=== PATIENT | female | born 1980 | race Caucasian/White ===

== ENCOUNTER 2017-08-10 09:52 | Day surgery (SDC) | payer MEDICAID ==
[~2017-08-10] VITALS: Ht 170.2 cm; Wt 73.6 kg
[~2017-08-10 09:52] MED LIST: ASPI1TAB93 PO; ATOR40TA16 PO; AVIATAB PO; ETON1IMP I-DERMAL; FROV1TAB PO; HYDR-3516 PO; HYDR-3583 PO; IBUP200C PO; METH4PAK PO; PHEN-556 PO; PROB1CAP12 PO; PROP40TA3 PO; VALA1TAB PO; VOLT1GEL4 TOPICAL; ZANT150T2 PO; [UNRECOGNIZED DRUG - OTHER]
[2017-08-10] MEDS ORDERED: ceFAZolin 2 GM PREMIX 50 ML ONE (10:39)
[2017-08-10] MEDS ORDERED: MAGN250T11 PO (10:52)
[2017-08-10] MEDS ORDERED: ONDANSETRON HCL 4 MG/2 ML VIAL IV PUSH ONE (12:00)
[2017-08-10] MEDS ORDERED: POVIDONE IODINE 5% (ANTISEPSIS KIT) 4 APPLICATIONS EACH NARE PRN (12:00)
[2017-08-10] MEDS ORDERED: LACTATED RINGER'S 1000 ML INJ 1,000 ML IV ONE (12:00)
[2017-08-10] MEDS ORDERED: ceFAZolin 2 GM PREMIX 50 ML IV SCH (12:00)
[2017-08-10] MEDS ORDERED: LACTATED RINGER'S 1000 ML IV PRN (12:00)
[2017-08-10] MEDS ORDERED: ROCURONIUM INJ 50 MG/5 ML SYRINGE IV PUSH ONE (12:00)
[2017-08-10] MEDS ORDERED: METOPROLOL TARTRATE 25 MG TAB PO PRN (12:00)
[2017-08-10] MEDS ORDERED: PHENYLEPH/NS 1000 MCG/10 ML SYR IV ONE (12:00)
[2017-08-10] MEDS ORDERED: MIDAZOLAM HCL 2 MG/2 ML VIAL IV ONE (12:00)
[2017-08-10] MEDS ORDERED: INSULIN HUMAN REGULAR 1,000 UNITS/10 ML VIAL SQ PRN (12:00)
[2017-08-10] MEDS ORDERED: ePHEDrine/NS 25 MG/5 ML SYR IV ONE (12:00)
[2017-08-10] MEDS ORDERED: LIDOCAINE HCL 1% PF 5 ML AMPULE OTHER ONE (12:00)
[2017-08-10] MEDS ORDERED: LACTATED RINGER'S 1000 ML INJ 1,000 ML IV SCH (12:00)
[2017-08-10] MEDS ORDERED: CHLORHEXIDINE GLUCONATE 2 % 1 PACK (2 CLOTHS) TOPICAL PRN (12:00)
[2017-08-10] MEDS ORDERED: SODIUM CHLORID 0.9% 500 ML IV PRN (12:00)
[2017-08-10] MEDS ORDERED: DEXAMETHASONE SOD PHOS 4 MG/ML VIAL IV ONE (12:00)
[2017-08-10] MEDS ORDERED: GLYCOPYRROLATE 1 MG/5 ML SYRINGE IV PUSH ONE (12:00)
[2017-08-10] MEDS ORDERED: PROPOFOL 200 MG/20 ML AMP IV ONE (12:00)
[2017-08-10] MEDS ORDERED: NEOSTIGMINE 3 MG/3 ML SYR IV ONE (12:00)
[2017-08-10] MEDS ORDERED: ACETAMINOPHEN 1000 MG/100 ML 100 ML IV ONE (12:58)
[2017-08-10] MEDS ORDERED: GENTAMICIN SULFATE 80 MG/2 ML VIAL ONE (13:15)
[2017-08-10] MEDS ORDERED: LIDOCAINE 2%/EPINEPHrine PF 1:200,000 20ML SDV ONE (13:15)
[2017-08-10] MEDS ORDERED: SODIUM CHLORIDE 0.9% 20 ML VIAL ONE (14:13)
[2017-08-10] MEDS ORDERED: BUPIVACAINE LIPOSOME PF 1.3% 20 ML VIAL ONE (14:30)
[2017-08-10] MEDS ORDERED: BUPIVACAINE HCL PF 0.25% 30 ML VIAL ONE (14:32)
[2017-08-10] MEDS ORDERED: DILA2TAB2 PO (17:19)
--- NOTE | 2017-08-10 17:30 | RADRPT ---
EXAM DATE/TIME: 08/10/2017 14:18 [place] COMPARISON: No previous studies available for comparison. INDICATIONS : Join fusion. MEDICAL HISTORY : None. SURGICAL HISTORY : None. ENCOUNTER: Initial ACUITY: 1 day PAIN SCORE: Non-responsive. LOCATION: Right Sacroiliac joint. FINDINGS: 2 magnified C. arm spot views are centered over the right SI joint. No gross abnormality observed. CONCLUSION: Limited images. Henry Fitzpatrick Jr., MD on August 10, 2017 at 17:27 Board Certified Radiologist. This report was verified electronically.
--- NOTE | 2017-08-10 17:44 | PD.OP ---
Operative Report Date of Surgery: Aug 10, 2017 Preoperative Diagnosis: (1) Sacroiliac joint pain Right sacroiliac joint pain Postoperative Diagnosis: (1) Sacroiliac joint pain Right sacroiliac joint pain Procedure: Right sacroiliac joint fusion with allograft bone Use of biplanar C-arm imaging for localization for sacroiliac joint fusion Anesthesia: Gen. Surgeon: [facility] [employer](s): Kaelyn Edwards Operation and Findings: The patient was brought into the operating room and general endotracheal anesthesia introduced without difficulty Lines were established per Anesthesia The patient was placed in prone position on the concentric Mark table on gel cushions beneath the hip and chest and all extremities appropriately padded. The lumbosacral region was prepped and draped in sterile fashion Appropriate time out procedure was performed with all personal present and in agreement The AP and lateral C-arm imaging was used to localize the posterior margin of the sacroiliac joint and determine the appropriate trajectory for the incisions and implants. A line was marked over the sacroiliac joint on AP view and initial starting points for the 3 implants made approximately 1 cm above and medial to the upper margin of the SI joint, 1 cm medial to the mid point of the SI joint, and 1 cm below the lower margin of the SI joint was marked based on the AP view, respectfully The initial trajectory to the sacroiliac joint and each of the 3 marked and initial entry sites was confirmed using a spinal needle to enter the sacroiliac joint and confirm proper trajectory. 1% Xylocaine with epinephrine was then infiltrated at each incision site, and the incisions made approximately 15 mm in length sufficient to allow passage of the cannulas. Sharp and finger dissection was used to dissect the tissue down to the sacrum. The sharp guidewire was then placed through each of the 3 incision sites into the sacroiliac joint with placement confirmed with AP and lateral C-arm imaging including oblique views. The initial inner cannula was then placed into the sacroiliac joint over each of the guidewires and properly seated, followed by the larger drill guide. The drill was initially placed through the guide to ensure that the starting depths of the drill was appropriate as marked and the drill in reference to the top of the drill guide. At the upper and mid graft placement sites, the drill guide placed through the outer cannula was utilized to drill first the medial and middle then lateral and middle drill holes with any bone shavings saved for fusion. At each of these sites the allograft and autograft fusion material was placed through the cannula into the SI joint followed by the SI Fuse implant followed by additional allograft. The grafts were firmly placed in the SI joint using the tamp and mallet. At the inferior graft placement site, the SI joint was widely , and was too wide to securely place an implant, thus only the upper and middle implants were placed. The graft placement was checked with intraoperative C-arm and felt to be satisfactory. All incisions were well irrigated with antibiotic irrigation bleeding controlled with the bipolar forceps. Closure was performed with 2-0 Vicryl for the deep fascia, 3-0 Vicryl interrupted for the subcutaneous closure, and 4-0 Vicryl running for the subcuticular closure. A dressing of sterile Mastisol, Steri-Strips, and a silver impregnated dressing was placed. The patient was turned back onto the recovery room stretcher and taken to recovery room in stable condition. All counts were correct at the end of the case No specimen was sent to pathology Estimated blood loss: 25 cc Terrence Reece MD Aug 10, 2017 17:44
[2017-08-10] MEDS ORDERED: DO NOT ADM ANY ANTICOAGULANT DRUGS PRN (18:15)
[2017-08-10 19:15] VITALS: BP 112/74; PULSE 84; RESP 20; TEMP 98.1; O2SAT 97
[2017-08-15] MEDS ORDERED: MICO1CRE2 VAGINAL (16:22)
== END 2017-08-10 19:15 | disposition home or self-care (01) ==
LOC: HSDC 09:52
PROVIDERS: ATTEND Neurological Surgery
DX: M53.3 Sacrococcygeal disorders, not elsewhere classified (principal); M51.26 Other intervertebral disc displacement, lumbar region; M51.27 Other intervertebral disc displacement, lumbosacral region
CPT/HCPCS: 01160; 27279; 72200; 76000; J0131; J0690; J1580; J7120; J1100; J2250; J2370; J2405; J2710; J3010